=== PATIENT | male | born 1940 | race Caucasian/White ===

== ENCOUNTER → 2016-12-18 | Outpatient (CLI) | payer OTHER ==
[~2016-12-18] MED LIST: Benadryl PO; Ecotrin PO; Feosol PO; Flexeril PO; Hyzaar 100-25 PO; Senokot S,Pericolace PO; Tenormin PO; Viagra PO; Vicodin,Norco 5/325 PO; Zyloprim PO; celeBREX PO
== END | disposition home or self-care (01) ==
DX: M17.12 Unilateral primary osteoarthritis, left knee (principal); R26.2 Difficulty in walking, not elsewhere classified; M62.81 Muscle weakness (generalized); M25.662 Stiffness of left knee, not elsewhere classified
CPT/HCPCS: 97110 GP; 97150 GO; 97161 GP; 97165 GO; G8978 GP; G8979 GP; G8980 GP; G8987 GO; G8988 GO; G8989 GO

== ENCOUNTER 2017-01-21 06:23 | Inpatient (IN) | payer OTHER ==
[~2017-01-21] VITALS: Ht 162.6 cm; Wt 91.4 kg
[~2017-01-21 06:23] MED LIST changes: +ADVIL200 MG PO; +FLEXERIL5 MG PO; +HYZAAR 100-21 TABLET PO; +IRON325 M1 PO; +TENORMIN50 MG PO; +VITAMIN D-3 401 EACH PO; +ZYLOPRIM300 MG PO
[2017-01-21 08:10] VITALS: BP 134/84
[2017-01-21 13:02] LABS: HEMATOCRIT 35.5 % (38.0-50.0); MCH 33.5 PG (29.0-34.0); MCHC 35.2 G/DL (30.0-36.0); MCV 95.2 FL (86-99); MEAN PLAT.VOLUME 10.6 uM^3 (9.0-12.4); PLATELET COUNT 152 K/uL (156-360); RBC DIS.WIDTH-CV 12.8 % (11.8-14.6); RBC DIS.WIDTH-SD 44.3 % (39-53); RED BLOOD COUNT 3.73 M/uL (4.00-5.50); WHITE BLOOD COUNT 7.2 K/uL (4.1-10.2)
[2017-01-21 13:09] VITALS: BP 121/69
[2017-01-21 15:30] VITALS: BP 133/76
[2017-01-21 19:54] VITALS: BP 157/85
[2017-01-21 20:49] VITALS: BP 166/87
[2017-01-22 00:33] VITALS: BP 151/76
[2017-01-22 03:38] VITALS: BP 126/75
[2017-01-22 05:44] LABS: HEMATOCRIT 34.3 % (38.0-50.0)
[2017-01-22 06:11] LABS: ANION GAP 10 MEQ/L (2-14); CHLORIDE 97 MEQ/L (99-109); GFR ESTIMATE (CALCULATED) > 59 mL/min/; GLUCOSE 135 mg/dL (70-99); POTASSIUM 3.7 MEQ/L (3.7-5.4); SAMPLE HEMOLYSIS CHECK 0; SAMPLE ICTERIC CHECK 0; SAMPLE LIPEMIA CHECK 0; SODIUM 133 MEQ/L (136-147); UREA NITROGEN (BUN) 12 mg/dL (9-23)
[2017-01-22 07:38] VITALS: BP 131/61
[2017-01-22 12:00] VITALS: BP 138/71
[2017-01-22 15:46] VITALS: BP 126/73
[2017-01-22 17:59] LABS: POINT-OF-CARE METER ID UU13113712
[2017-01-22 20:06] VITALS: BP 127/65
[2017-01-23 00:06] VITALS: BP 109/55
[2017-01-23 04:00] VITALS: BP 129/70
[2017-01-23 05:21] LABS: HEMATOCRIT 31.8 % (38.0-50.0); MCV 94.1 FL (86-99)
[2017-01-23 08:11] VITALS: BP 112/58
[2017-01-23] MEDS ORDERED: SENNA PLUS TAB1 EACH PO (08:21)
[2017-01-23] MEDS ORDERED: ENDOCET 5-3251 EACH PO (08:23)
[2017-01-23] MEDS ORDERED: LOVENOX40 MG/0.4 SC (08:23)
[2017-01-23 11:40] VITALS: BP 98/55
[2017-01-23 15:44] VITALS: BP 111/59
[2017-01-23 19:31] VITALS: BP 113/67
[2017-01-24 00:24] VITALS: BP 121/65
[2017-01-24 04:17] VITALS: BP 117/64
[2017-01-24 07:42] VITALS: BP 115/59
[2017-01-24 10:45] VITALS: BP 126/70
== END 2017-01-24 10:54 | DRG 470 ==
LOC: 2SOUTH 06:23 → 3WEST 13:03
PROVIDERS: Orthopaedic Surgery
PROC: 0SRD0J9 Replacement of Left Knee Joint with Synthetic Substitute, Cemented, Open Approach (ICD-10-PCS; principal; 2017-01-21)
DX: M17.12 Unilateral primary osteoarthritis, left knee (principal); I10 Essential (primary) hypertension; M10.9 Gout, unspecified; K44.9 Diaphragmatic hernia without obstruction or gangrene; W19.XXXA Unspecified fall, initial encounter; Y93.9 Activity, unspecified; Y92.238 Other place in hospital as the place of occurrence of the external cause
CPT/HCPCS: 71010; 73560; 80048; 82948; 85014; 85018; 85027; C1713; J0131; J0690; J1170; J1650; J2250; J7030; J7050